=== PATIENT | female | born 1960 | race Caucasian/White ===

== ENCOUNTER 2019-05-28 10:41 | Emergency (ER) | payer OTHER, SELFPAY ==
[2019-05-28 10:55] VITALS: BP 120/76; PULSE 65; RESP 16; TEMP 36.4; O2SAT 96; BMI 22.7
--- NOTE | 2019-05-28 11:13 | DI.RAD.S_ITS ---
PROCEDURE: XR CHEST 1V INDICATIONS: chest pain TECHNIQUE: One view of the chest was acquired. COMPARISON: None. FINDINGS: Surgical changes and devices: None. Lungs and pleura: Lungs are clear. No pleural effusions or pneumothorax. Mediastinum: Mediastinal contours appear normal. Heart size is normal. Bones and chest wall: No suspicious bony lesions. Overlying soft tissues appear unremarkable. IMPRESSION: No acute pulmonary process. Dictated by: Nadeen De La Cruz M.D. on 05/28/2019 at 12:02 Approved by: Nadeen De La Cruz M.D. on 05/28/2019 at 12:02
[2019-05-28 11:30] LABS: Add Manual Diff / Slide Review NO; Basophils Absolute Auto 0 /uL (0-100); Basophils Percent Auto 0.3 % (0-2); Eosinophils Absolute Auto 100 /uL (0-450); Eosinophils Percent Auto 0.6 % (2-4); Hematocrit 42.9 % (36-46); Hemoglobin 15.3 g/dL (12.0-16.0); Lymphocytes Absolute Auto 900 /uL (1100-4500); Lymphocytes Percent Auto 9.9 % (25-40); Mean Corpuscular HGB Conc 35.7 % (30-36); Mean Corpuscular Hemoglobin 32.3 PG (26-34); Mean Corpuscular Volume 90.3 fL (80-100); Monocytes Absolute Auto 600 /uL (0-900); Monocytes Percent Auto 6.9 % (3-14); Neutrophils Absolute Auto 7400 /uL (1500-7000); Neutrophils Percent Auto 82.3 % (50-75); Platelet Count 207 X10^3/uL (150-400); Red Blood Cell Count 4.75 X10^6/uL (4.0-5.2); Red Cell Distribution Width 12.4 % (11.6-14.8)
[2019-05-28] MEDS: SODIUM CHLORIDE 0.9% 1,000 ML 1000 ML IV (11:36)
[2019-05-28 11:38] LABS: Prothrombin Time 11.3 SECONDS (10.1-12.7)
[2019-05-28 11:40] LABS: PTT Partial Thromboplastin Tim 28 SECONDS (26.4-36.2)
[2019-05-28 11:52] LABS: Alanine Aminotransferase 21 IU/L (<35); Albumin 5.1 g/dL (3.5-5.0); Albumin Globulin Ratio 1.6 (1.0-2.8); Alkaline Phosphatase 76 U/L (38-126); Aspartate Aminotransferase 44 IU/L (14-36); BUN Creatinine Ratio 18.6 (6-22); Bilirubin Total 2.4 mg/dL (0.2-1.3); Blood Urea Nitrogen 13 mg/dL (7-17); Calcium 9.6 mg/dL (8.4-10.2); Carbon Dioxide 28 mmol/L (22-32); Chloride 87 mmol/L (98-107); Creatine Kinase 99 U/L (30-135); Estimated Glomerular Filt Rate > 60.0 mL/min (>60); Globulin 3.2 g/dL (1.7-4.1); Glucose 109 mg/dL (80-110); Lipase 166 U/L (23-300); Sodium 128 mmol/L (137-145); Total Protein 8.3 g/dL (6.3-8.2)
--- NOTE | 2019-05-28 11:53 | ED.SYNCOPE ---
HPI - Syncope General Chief Complaint: Syncope Stated Complaint: low bp/ fainted 2x/ rt side body numb Time Seen by Provider: 05/28/19 11:19 Source: patient and family Mode of arrival: Ambulatory Limitations: language barrier History of Present Illness HPI narrative: Patient comes emergency department complaining of a syncopal episode that happened earlier today. Patient was walking after being up all night in taking her blood pressure medication this morning. Patient states she started to feel dizzy and ended up losing consciousness. She found herself on the floor the living room, which is carpeted. Patient has not been ill with anything else recently. 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 The patient denies any vomiting, but did experience some nausea. No chest pain or shortness of breath. No recent fluid losses. Patient has a history of a chin lift, and states that since then, she has noticed more problems with dizziness, especially if she is tipping her head back to look up. Patient denies any fevers or chills. She states she is otherwise healthy. Related Data Allergies Allergy/AdvReac Type Severity Reaction Status Date / Time analgyn Allergy Uncoded 05/28/19 10:55 Review of Systems Constitutional Constitutional: Denies chills, Denies fatigue, Denies fever(s), Denies frequent falls, Denies lethargy and Denies weakness Eyes Eyes: Denies change in vision, Denies eye discharge, Denies irritation and Denies loss of vision ENT Ears, Nose, Mouth, and Throat: Denies change in voice, Denies dizziness, Denies neck pain, Denies sore throat and Denies throat swelling Cardiovascular Cardiovascular: Denies chest pain, Reports syncope, Denies irregular heart rhythm, Denies lightheadedness, Denies palpitations, Denies dyspnea, Denies dyspnea on exertion and Denies orthopnea Respiratory Respiratory: Denies cough, Denies dyspnea, Denies dyspnea on exertion and Denies wheezing Gastrointestinal Gastrointestinal: Denies abdominal pain, Denies change in bowel habits, Denies diarrhea, Denies nausea and Denies vomiting Genitourinary Genitourinary: Denies hematuria, Denies flank pain, Denies urinary incontinence and Denies urinary urgency Musculoskeletal Musculoskeletal: Denies back pain, Denies muscle weakness, Denies neck pain, Denies numbness and Denies tingling Integumentary/Breasts Skin/Breast: Denies pruritus, Denies erythema, Denies rash and Denies wounds Neurologic Neurologic: Denies behavioral changes, Denies confusion, Denies dizziness, Reports syncope, Denies frequent falls, Denies loss of vision, Denies numbness, Denies tingling and Denies weakness Psychiatric Psychiatric: Denies anxiety, Denies behavioral changes, Denies confusion, Denies depression, Denies homicidal ideation and Denies suicidal ideation Endocrine Endocrine: Denies fatigue, Denies flushing and Denies palpitations Hematologic/Lymphatic Hematologic/Lymphatic: Denies easy bruising Allergic/Immunologic Allergic/Immunologic: Denies urticaria, Denies throat swelling and Denies wheezing Patient History Medical History HTN (hypertension) (Acute) Social History Smoking Status: Never smoker Exam Initial Vital Signs Initial Vital Signs: Vital Signs Temperature 97.6 F 05/28/19 10:55 Pulse Rate 65 05/28/19 10:55 Respiratory Rate 16 05/28/19 10:55 Blood Pressure 120/76 05/28/19 10:55 Pulse Oximetry 96 05/28/19 10:55 Const General: cooperative and well developed Nutritional Appearance: well nourished Orientation: alert, awake, oriented x3 and not confused [facility] Head: normocephalic and atraumatic Ears: external ears normal Nose: external nose normal and No nasal discharge Face and sinus: face symmetric and No dry mucous membranes Mouth: oral mucosae normal and moist mucous membranes Teeth and gingiva: dentition normal Throat: tonsils normal and uvula midline Eyes General: appearance normal, both eyes and all related structures Eyelids: eyelids normal Conjunctivae: conjunctivae normal Sclera: sclerae normal Pupils: PERRL EOM: EOM intact bilaterally Neck Neck: normal visual inspection, trachea midline, No lymphadenopathy, No midline deformity and No JVD Lymphatic: No lymphedema Chest Chest: normal inspection of the chest Resp Effort & Inspection: normal respiratory effort, able to speak in complete sentences, no respiratory distress and no use of accessory muscles Auscultation: clear to auscultation bilaterally, no rales, no rhonchi and no wheezes Cardio Rate: regular rate Rhythm: regular rhythm Heart Sounds: no click, no gallops, no murmurs and no rubs Pulses: normal peripheral pulses GI Inspection: non-distended Palpation: soft, no hepatosplenomegaly, No guarding, No pulsatile mass and No tender Auscultation: normal bowel sounds Back/Spine/Pelvis Back: No CVA tenderness Cervical Spine: cervical ROM normal and No pain with cervical ROM Thoracic/Lumbar Spine: thoracic and lumbar spine normal to inspection Skin General: no rashes or lesions noted, No jaundice and No petechiae Neuro General: alert, oriented x3, gait normal and no focal motor deficits Speech: speech normal Extrem General: full ROM, no clubbing, cyanosis or edema, no pedal edema and no calf tenderness Psych Appearance: well kempt Mental Status: mental status grossly normal Attitude: cooperative Thought Content: normal and suicidality Judgment: judgment good Course Course Course Narrative: Patient was fairly well-appearing in the emergency her vitals were normal. Her EKG was reassuring. The patient was worked up with labs and imaging, and given IV fluids, after which she was found to be feeling much better. We have discussed the need for her to drink plenty of fluids at home and to try to rest during the day if she has not slept well at night. We have discussed the usual indications for return and follow-up. Orders Ordered: Discontinued Medications Sodium Chloride (Normal Saline 0.9%) 1,000 mls @ 1,000 mls/hr IV BOLUS ONE Stop: 05/28/19 12:29 Last Infusion: 05/28/19 13:24 Dose: 0 mls/hr Documented by: Infusion: 05/28/19 12:42 Dose: 1,000 mls/hr Documented by: Infusion: 05/28/19 12:06 Dose: 0 mls/hr Documented by: Admin: 05/28/19 11:36 Dose: 1,000 mls/hr Documented by: SHEMAR Vital Signs Vital signs: Vital Signs - 8 hr 05/28/19 10:55 Temperature 97.6 F Pulse Rate 65 Respiratory Rate 16 Blood Pressure 120/76 Pulse Oximetry 96 MDM - Syncope Medical Records Attestation: I reviewed the patient's medical records. Lab Data Attestation: I reviewed the patient's lab results. Result diagrams: 05/28/19 11:25 05/28/19 11:25 Labs: Lab Results 05/28/19 05/28/19 05/28/19 Range/Units 11:25 11:25 11:25 WBC 9.0 (4.5-11.0) X10^3/uL RBC 4.75 (4.0-5.2) X10^6/uL Hgb 15.3 (12.0-16.0) g/dL Hct 42.9 (36-46) % MCV 90.3 (80-100) fL MCH 32.3 (26-34) PG MCHC 35.7 (30-36) % RDW 12.4 (11.6-14.8) % Plt Count 207 (150-400) X10^3/uL Neut % (Auto) 82.3 H (50-75) % Lymph % (Auto) 9.9 L (25-40) % [place] % (Auto) 6.9 (3-14) % Eos % (Auto) 0.6 L (2-4) % Baso % (Auto) 0.3 (0-2) % Neut # (Auto) 7400 H (1796-2602) /uL Lymph # (Auto) 900 L (2752-2568) /uL [place] # (Auto) 600 (0-900) /uL Eos # (Auto) 100 (0-450) /uL Baso # (Auto) 0 (0-100) /uL PT 11.3 (10.1-12.7) SECONDS INR 1.0 (0.9-1.3) APTT 28 (26.4-36.2) SECONDS Sodium 128 L (137-145) mmol/L Potassium 4.0 (3.4-5.1) mmol/L Chloride 87 L (98-107) mmol/L Carbon Dioxide 28 (22-32) mmol/L BUN 13 (7-17) mg/dL Creatinine 0.70 (0.52-1.04) mg/dL Estimated GFR > 60.0 (>60) mL/min BUN/Creatinine Ratio 18.6 (6-22) Glucose 109 (80-110) mg/dL Calcium 9.6 (8.4-10.2) mg/dL Total Bilirubin 2.4 H (0.2-1.3) mg/dL AST 44 H (14-36) IU/L ALT 21 (<35) IU/L Alkaline Phosphatase 76 (38-126) U/L Total Creatine Kinase 99 (30-135) U/L CK-MB (CK-2) TNP CK-MB (CK-2) Rel Index TNP Troponin I < 0.012 (0.01-0.034) ng/mL Total Protein 8.3 H (6.3-8.2) g/dL Albumin 5.1 H (3.5-5.0) g/dL Globulin 3.2 (1.7-4.1) g/dL Albumin/Globulin Ratio 1.6 (1.0-2.8) Lipase 166 (23-300) U/L Imaging Data Chest x-ray: Radiologist's impression: PROCEDURE: XR CHEST 1V INDICATIONS: chest pain TECHNIQUE: One view of the chest was acquired. COMPARISON: None. FINDINGS: Surgical changes and devices: None. Lungs and pleura: Lungs are clear. No pleural effusions or pneumothorax. Mediastinum: Mediastinal contours appear normal. Heart size is normal. Bones and chest wall: No suspicious bony lesions. Overlying soft tissues appear unremarkable. IMPRESSION: No acute pulmonary process. Dictated by: Nadeen De La Cruz M.D. on 05/28/2019 at 12:02 Approved by: Nadeen De La Cruz M.D. on 05/28/2019 at 12:02 CT scan - head: Radiologist's impression: PROCEDURE: CT HEAD/BRAIN WO CON INDICATIONS: syncope TECHNIQUE: Noncontrast 4.5 mm thick angled axial sections acquired from the foramen magnum to the vertex, with coronal and sagittal reformats. For radiation dose reduction, the following was used: automated exposure control, adjustment of mA and/or kV according to patient size. COMPARISON: [facility], , XR CHEST 1V, 05/28/2019, 11:34. FINDINGS: Image quality: Excellent. CSF spaces: Basal cisterns are patent. No extra-axial fluid collections. The ventricles are symmetric in size and shape. Brain: No intracranial bleeds or masses. There is cerebral volume loss for age, with resultant ventricular and sulcal prominence. There are periventricular and deep white matter chronic small vessel ischemic changes. There is intracranial internal carotid artery atherosclerosis. Symmetric basal ganglia calcification is seen, which is not regarded to be pathologic. Skull and face: Calvarium and visualized facial bones appear intact, without suspicious lesions. Sinuses: Visualized sinuses and mastoids are clear. IMPRESSION: Unremarkable intracranial study for age, without an imaging explanation for the patient's presenting history of syncope. Dictated by: Rajeev Goyal M.D. on 05/28/2019 at 11:26 Approved by: Rajeev Goyal M.D. on 05/28/2019 at 11:27 ECG Data Attestation: I personally reviewed and interpreted this ECG as follows: (See below) Interpretation: Twelve lead EKG performed May 28, 2018 at 10:57 a.m. as follows: Regular ventricular rhythm with a rate of 67 beats per min IL interval is 164 millisecond QRS duration 79 millisecond QTC interval 424 millisecond Occasional ectopy No significant ST T wave changes Interpretation: Normal sinus rhythm with occasional PVCs; nonspecific ST T wave changes; no signs of acute ischemia; borderline EKG as interpreted by ED MD. Discharge Plan Departure Patient Disposition: Home Clinical Impression: Syncope Qualifiers: Syncope type: unspecified Qualified Code(s): R55 - Syncope and collapse Discharge Date/Time: 05/28/19 13:59 Instructions: DI for Syncope in Adults (Fainting) Activity Restrictions/Additional Instructions: Your labs, EKG, and CT scan look good. There is no evidence of a dangerous or emergent condition which has caused your fainting today. Please be sure that you drink plenty of fluids, and rest for a bit after taking your blood pressure medicine, particularly if you have been up a lot in the night. This will help prevent future fainting episodes. If he feels faint again and have chest pain, shortness of breath, palpitations, or any other concerning symptoms along with the feeling of being faint, the please return to the emergency department immediately. Otherwise, please follow-up with your primary care physician. You may discuss with your doctor whether an ultrasound of your carotid arteries/neck vasculature is warranted, due to your dizziness when you tip your head back. Referrals: [facility] [Provider Group]
[2019-05-28 11:54] LABS: HEMOLYSIS 55 (0-50)
[2019-05-28 11:59] VITALS: BP 108/77; PULSE 66; O2SAT 96
[2019-05-28 12:03] LABS: Troponin I < 0.012 ng/mL (0.01-0.034)
[2019-05-28 13:25] VITALS: BP 136/77; PULSE 66; RESP 14; O2SAT 97
[2019-05-28 13:58] VITALS: BP 136/77; PULSE 68; RESP 16; O2SAT 100
== END 2019-05-28 13:59 | disposition home or self-care (01) ==
PROVIDERS: Emergency Provider Emergency Medicine
DX: R55 Syncope and collapse (principal); R07.9 Chest pain, unspecified; I95.9 Hypotension, unspecified
CPT/HCPCS: 36415; 70450; 71045; 80053; 82550; 83690; 84484; 85025; 85610; 85730; 93005; 96360; 99284; 99285

== ENCOUNTER 2019-10-12 22:24 | Emergency (ER) | payer OTHER, SELFPAY ==
[2019-10-12 22:37] VITALS: BP 180/102; PULSE 69; RESP 15; TEMP 36.8; O2SAT 100; BMI 22.3
--- NOTE | 2019-10-12 22:37 | ED_ITS ---
HPI - General Adult General Chief complaint: Hypertension Stated complaint: states very high blood pressure Time Seen by Provider: 10/12/19 22:27 Source: patient and family (Daughter) Mode of arrival: Ambulatory Limitations: language barrier History of Present Illness HPI narrative: 59-year-old female. Speaks some broken Romanian. Much of translation provided by daughter. Offered translation line however they de clined. Patient is here for evaluation of high blood pressure and nausea and headache. Patient has a history of high blood pressure. Does take captopril which she buys [id number] in [place]. She states she only take this medication when her systolic blood pressure gets greater than 140. She was recently given a prescription for losartan. She only started taking this approximately 1 week ago. She states that over the past couple days she has noticed that in the afternoons she is not feeling well to include headaches and some nausea. No vomiting. She also states she has some tingling in her hands that is bilateral. This evening she took her blood pressure and was elevated with a systolic in the 170s. She states she did take her medications this morning. She states that normally in the afternoon her blood pressure is in the 120s to 140 range. She has never had a headache before with elevated blood pressure. Related Data Home Medications Medication Instructions Recorded Confirmed captopril 25 mg PO PRN PRN 10/12/19 10/12/19 losartan 12.5 mg PO DAILY 10/12/19 10/12/19 Allergies Allergy/AdvReac Type Severity Reaction Status Date / Time analgyn Allergy Uncoded 05/28/19 10:55 Review of Systems Constitutional Constitutional: Denies fever(s), Reports headache(s) and Denies weakness Eyes Eyes: Denies blurry vision and Denies change in vision ENT Ears, Nose, Mouth, and Throat: Denies vertigo, Denies dizziness, Reports headache(s), Denies disequilibrium and Denies sore throat Cardiovascular Cardiovascular: Denies chest pain and Denies dyspnea Respiratory Respiratory: Denies dyspnea Gastrointestinal Gastrointestinal: Denies abdominal pain, Reports nausea and Denies vomiting Musculoskeletal Musculoskeletal: Denies arthralgias and Reports tingling Integumentary/Breasts Skin/Breast: Denies lesions and Denies rash Neurologic Neurologic: Denies behavioral changes, Denies vertigo, Denies dizziness, Reports headache(s), Denies restless legs, Reports tingling, Denies disequilibrium and Denies weakness Psychiatric Psychiatric: Denies behavioral changes Hematologic/Lymphatic Hematologic/Lymphatic: Denies easy bleeding and Denies easy bruising Patient History Medical History HTN (hypertension) (Acute) Social History Smoking Status: Never smoker Smoking Status: Never smoker Exam Initial Vital Signs Initial Vital Signs: Vital Signs Temperature 98.2 F 10/12/19 22:37 Pulse Rate 69 10/12/19 22:37 Respiratory Rate 15 10/12/19 22:37 Blood Pressure 180/102 H 10/12/19 22:37 Pulse Oximetry 100 10/12/19 22:37 Const General: cooperative, comfortable, well developed and well groomed Limitations: mental status not altered HENMT Head: normal to inspection and normocephalic Resp Effort & Inspection: normal respiratory effort Auscultation: clear to auscultation bilaterally Cardio Rate: regular rate Rhythm: regular rhythm Skin Lesions: no lesions Rashes: no rashes Neuro General: alert, awake and oriented x3 Cranial Nerves: CN's II-XI intact bilaterally Cognition: normal cognition Speech: speech normal Sensory Exam: no sensory deficits noted Extrem General: normal to inspection and capillary refill normal Psych Appearance: grossly normal and well kempt Course Orders Ordered: ED Orders 10/12/19 22:29 EKG-12 Lead Stat 10/12/19 22:48 CT head/brain wo con Stat Discontinued Medications Acetaminophen (Tylenol) 975 mg PO NOW ONE Stop: 10/12/19 22:49 Last Admin: 10/12/19 23:15 Dose: 975 mg Documented by: ELPIDIO Ondansetron HCl (Zofran Odt) 4 mg SL NOW ONE Stop: 10/12/19 22:49 Last Admin: 10/12/19 23:15 Dose: 4 mg Documented by: ELPIDIO Vital Signs Vital signs: Vital Signs - 8 hr 10/12/19 22:37 10/12/19 23:41 Temperature 98.2 F Pulse Rate 69 63 Respiratory Rate 15 14 Blood Pressure 180/102 H Blood Pressure [Left Arm] 157/98 H Pulse Oximetry 100 97 Medical Decision Making Imaging Data CT scan - head: Radiologist's Impression: No acute changes ECG Data Attestation: I personally reviewed and interpreted this ECG as follows: Prior ECG tracings: not available for review Interpretation: Sinus rhythm Ventricular rate is 62 Normal axis Normal QRS Normal QTC No ST T wave changes MDM Narrative Medical decision making narrative: Patient has a normal neurologic exam. Blood pressure did decrease to a systolic in the 140s with rest and symptom treatment. Head CT was unremarkable. EKG is unremarkable. Had a long discussion with her and her daughter bedside regarding blood pressure. We did discuss the importance of taking her blood pressure at home and recording these numbers so that she could talk with her primary doctor about potentially changing any medi cations. I do not feel like we should change any of her medications this evening given her presenting symptoms. Low suspicion for end-organ damage to include TIA/CVA or acute intracranial hemorrhage given her clinical presentation. Patient was given return precautions and follow-up instructions. She expressed understanding and agreement. Discharge Plan Departure Patient Disposition: Home Clinical Impression: HTN (hypertension) Qualifiers: Hypertension type: unspecified Qualified Code(s): I10 - Essential (primary) hypertension Instructions: DI for High Blood Pressure Activity Restrictions/Additional Instructions: Recommend that you continue to take your blood pressure medication like we discussed. It is important that you record your blood pressure is so that you can take them into your primary doctor to discuss any changes to your medications. Contact your primary provider for follow-up. Prescriptions: No Action captopril 25 mg Tablet 25 mg PO PRN PRN (Reason: Blood Pressure) RF: 0 losartan 25 mg Tablet 12.5 mg PO DAILY RF: 0
--- NOTE | 2019-10-12 22:48 | DI.CT.S_ITS ---
PROCEDURE: CT HEAD/BRAIN WO CON INDICATIONS: elevated BP with hand tingling TECHNIQUE: Noncontrast 4.5 mm thick angled axial sections acquired from the foramen magnum to the vertex, with coronal and sagittal reformats. For radiation dose reduction, the following was used: automated exposure control, adjustment of mA and/or kV according to patient size. COMPARISON: [facility], CT, CT HEAD/BRAIN WO CON, 05/28/2019, 12:03. FINDINGS: Image quality: Excellent. CSF spaces: Basal cisterns are patent. No extra-axial fluid collections. Ventricles are normal in size and shape. Brain: No midline shift. No intracranial masses or hemorrhage. Bilateral basal ganglia calcifications. Holley-white matter interface is normal. Skull and face: Calvarium and visualized facial bones are intact, without suspicious lesions. Sinuses: Visualized sinuses and mastoids are clear. IMPRESSION: No acute intracranial abnormalities. No significant discrepancy with the filler and trimmer radiology preliminary report. Dictated by: Ignacia Tineo M.D. on 10/13/2019 at 8:03 Approved by: Ignacia Tineo M.D. on 10/13/2019 at 8:04
[2019-10-12] MEDS: ACETAMINOPHEN 325 MG TABLET 975 MG PO (23:15)
[2019-10-12] MEDS: ONDANSETRON 4 MG ODT SL (23:15)
[2019-10-12 23:41] VITALS: BP 157/98; PULSE 63; RESP 14; O2SAT 97
== END 2019-10-13 00:20 | disposition home or self-care (01) ==
PROVIDERS: Emergency Provider Emergency Medicine
DX: I10 Essential (primary) hypertension (principal); R51 Headache; R11.0 Nausea
CPT/HCPCS: 70450; 93005; 99284

== ENCOUNTER → 2020-10-04 08:06 | Outpatient (CLI) | payer OTHER, SELFPAY ==
--- NOTE | 2020-10-04 | DI.US.S_ITS ---
PROCEDURE: US ABDOMEN COMPLETE INDICATIONS: LEFT UPPER QUADRANT PAIN TECHNIQUE: Real-time scanning was performed of the abdominal and retroperitoneal organs, with image documentation. COMPARISON: None. FINDINGS: Liver: Liver is normal in size and homogeneous in echotexture. Gallbladder: Nondilated. No stones or sludge. Normal gallbladder wall thickness. No pericholecystic fluid. Negative sonographic Valdovinos's sign. Biliary ducts: Intrahepatic bile ducts are non-dilated. Extrahepatic bile duct caliber measures 7 mm. Normal is 6-7 mm or less in diameter, or 10 mm or less post-cholecystectomy. Pancreas: Visualized portions of the pancreas are sonographically normal. Spleen: Spleen is normal in size and homogeneous in echotexture. Kidneys: Kidneys are normal in size and echotexture. Right kidney measures 10.6 cm long; left kidney measures 10 cm long. No hydronephrosis or nephrolithiasis. No solid masses. Right kidney simple cyst measuring at 3.7 cm. Aorta: Visualized aorta is normal in caliber at less than 3 cm. Iliacs: Proximal common iliac arteries are normal in caliber at less than 2.5 cm. IVC: Intrahepatic inferior vena cava is patent. Miscellaneous: No free abdominal fluid. IMPRESSION: 1. No acute cholecystitis. No gallstones. 2. CBD is at the upper limits of normal. 3. No hydronephrosis. If clinically indicated consider CT abdomen and pelvis with IV contrast for further evaluation. Dictated by: Wil Matthew M.D. on 10/04/2020 at 9:25 Approved by: Wil Matthew M.D. on 10/04/2020 at 9:30
== END ==
PROVIDERS: PCP Naturopath; Referring Provider Naturopath; Visit Provider Naturopath
DX: R10.12 Left upper quadrant pain (principal)
CPT/HCPCS: 76700

== ENCOUNTER 2022-09-04 | Emergency (ER) | payer OTHER, SELFPAY ==
[2022-09-04 00:32] VITALS: BP 175/117; PULSE 66; RESP 18; TEMP 36.6; O2SAT 98
--- NOTE | 2022-09-04 02:33 | DI.RAD.S_ITS ---
PROCEDURE: XR FINGER LT MIN 2V INDICATIONS: deep laceration, possible foreign body TECHNIQUE: AP hand, 2 views of the left 4th finger(s) acquired. COMPARISON: None. FINDINGS: Bones: No acute fractures or dislocations. Polyarticular degenerative changes of the interphalangeal joints of the imaged left hand. Findings are most pronounced in the distal interphalangeal joints as well as the interphalangeal joint of the thumb. No suspicious bony lesions. Soft tissues: No suspicious soft tissue calcifications. No radiopaque soft tissue foreign bodies . IMPRESSION: Left 4th finger without acute fracture or dislocation. No radiopaque soft tissue foreign body seen. Background polyarticular degenerative changes of the left hand. No significant discrepancy with the night shift manager radiology preliminary report. Dictated by: Rubén Walker M.D. on 09/04/2022 at 7:14 Approved by: Rubén Walker M.D. on 09/04/2022 at 7:16
[2022-09-04] MEDS: TET,DIPH,PERTUSS(ACELL),VAC/PF 0.5 ML SYRINGE IM (02:41)
[2022-09-04] MEDS: LIDOCAINE 2% INJ MDV 20ML SUBCUT (02:43)
--- NOTE | 2022-09-04 03:07 | ED_ITS ---
HPI - Wound/Laceration General Chief Complaint: Wound/Laceration Stated Complaint: check left hand finger injury Time Seen by Provider: 09/04/22 01:09 Source: patient Mode of arrival: Ambulatory History of Present Illness HPI narrative: 62-year-old female nonsmoker with a history of hypertension presents with her in the chief complaint of an accidental laceration to the ring finger of her left hand. She and he or walking on a [place] and [facility] and she was holding a ceramic mug when she tripped and fell causing the mug to shatter which resulted in a laceration of the volar surface of her left index finger. She states that it was washed and dressed by a mica washer gluer up at the [employer], she then drove about 2 hours here. She states her tetanus will need to be updated. She states it bled a fair amount. She denies any numbness, tingling weakness. Related Data Home Medications Medication Instructions Recorded Confirmed captopril 25 mg tablet 25 mg PO PRN PRN Blood Pressure 10/12/19 09/17/21 losartan 25 mg tablet 12.5 mg PO DAILY 10/12/19 09/17/21 Previous Rx's Medication Instructions Recorded ondansetron 4 mg disintegrating 4 mg PO Q6H PRN nausea and 10/13/19 tablet vomiting #14 tabs cephalexin 500 mg capsule 500 mg PO Q6H 7 days #28 caps 09/04/22 hydrocodone 5 mg-acetaminophen 325 1 tab PO Q4-6H PRN pain #10 tabs 09/04/22 mg tablet Allergies Allergy/AdvReac Type Severity Reaction Status Date / Time analgyn Allergy Uncoded 05/28/19 10:55 Review of Systems Review of Systems Narrative: GENERAL: Denies chills, fatigue, malaise, fever, sweats. HEENT: Denies sinus pain, ear pain, sore throat, difficulty swallowing, dizziness. RESPIRATORY: Denies dyspnea, cough, wheezing, hemoptysis, sputum. CARDIOVASCULAR: Denies chest pain, palpitations, orthopnea, edema, GASTROINTESTINAL: Denies nausea, vomiting, abdominal pain, diarrhea, constipation, melena. : Denies dysuria, frequency, incontinence, hematuria, urinary retention. MUSCULOSKELETAL: See HPI SKIN: Denies rash, skin lesions, or other NEUROLOGIC: Denies weakness, headache, numbness, change in speech, confusion, seizures, incoordination. PSYCHIATRIC: No concerning psychosocial issues. 12 point review of systems is negative except for those stated above Patient History Medical History HTN (hypertension) Social History Smoking Status: Never smoker Smoking Status: Never smoker Substance Use Type: does not use Exam Narrative Exam Narrative: GENERAL: [62] year old patient appears stated age. Well-developed patient, in mild distress. HEAD: Atraumatic. Normocephalic. EYES: Pupils equal round and reactive. Extraocular motions intact. No scleral icterus. No injection or drainage. ENT: Nose without bleeding, purulent drainage. Throat without erythema, tonsillar hypertrophy or exudate. Airway patent. NECK: Trachea midline. Non tender CARDIOVASCULAR: Regular rate and rhythm without murmurs, gallops, or rubs. RESPIRATORY: Clear to auscultation. Breath sounds equal bilaterally. No wheezes, rales, or rhonchi. GASTROINTESTINAL: Abdomen soft, non-tender, nondistended. EXTREMITIES: 1.5 cm irregular flap like laceration on the flexor surface of her left ring finger. It is deep and there is pulsatile bleeding noted, no foreign body is seen. Blood pressure cuff used on left forearm to allow visualization in a bloodless field and no obvious tendon involvement is noted. BACK: Nontender without deformity or crepitance. No flank tenderness. NEURO: AOx3. SKIN: No rash or erythema of visible areas Initial Vital Signs Initial Vital Signs: Vital Signs Temperature 97.9 F 09/04/22 00:32 Pulse Rate 66 09/04/22 00:32 Respiratory Rate 18 09/04/22 00:32 Blood Pressure 175/117 H 09/04/22 00:32 Pulse Oximetry 98 09/04/22 00:32 Oxygen Delivery Method Room Air 09/04/22 00:32 Procedures Laceration Repair Laceration 1: Site: hand Side (If applicable): left Size (cm): 1.5 Description: flap and irregular Depth: simple, single layer Pre-repair: wound explored, irrigated extensively, deep structures intact and cleansed with chlorhexadine Skin layer closed with: nylon Skin layer suture size: 4-0 Number of sutures: 5 Technique: simple, interrupted Subcutaneous layer closed with: vicryl Subcutaneous layer suture size: 5-0 Number of sutures: 1 Technique: simple, interrupted Nerve Block Nerve Block 1: Time out performed: Yes Local Anesthetic: lidocaine 2% Amount of anesthesia used (mL): 4 Side: left Nerve Blocks: digital Procedure Successful: Yes Patient Tolerated Procedure: Well Complications: none Orthopedic Splinting/Casting Injury #1: Side: left Upper Extremity Injury Location: finger Upper Extremity Immobilizer: finger (other) Post splinting neuro exam: intact Post splinting vascular exam: intact Placed by: Nursing Course Orders Ordered: Discontinued Medications Hydrocodone Bitart/Acetaminophen (Hydrocodone/Acet 5/325 Prepack) 1 bottle MISC SEEINSTR ONE Stop: 09/04/22 02:34 Last Admin: 09/04/22 03:12 Dose: 1 bottle Documented By: MADELAINE Bacitracin (Bacitracin Oint 0.9 Gm Pckt) 1 applic TOP NOW ONE Stop: 09/04/22 02:46 Last Admin: 09/04/22 03:14 Dose: 1 applic Documented By: MADELAINE Diphtheria/Tetanus/Acell Pertussis (Tet,Diph,Pertuss(Acell),Vac/Pf 0.5 Ml Syringe) 0.5 ml IM .ONCE ONE Stop: 09/04/22 01:11 Last Admin: 09/04/22 02:41 Dose: 0.5 ml Documented By: MADELAINE Lidocaine HCl (Lidocaine 2% Inj Mdv 20ml) 1 ml SUBCUT NOW ONE Stop: 09/04/22 01:11 Last Admin: 09/04/22 02:43 Dose: 1 ml Documented By: MADELAINE Vital Signs Vital signs: Vital Signs - 8 hr 09/04/22 00:32 Temperature 97.9 F Pulse Rate 66 Respiratory Rate 18 Blood Pressure 175/117 H Pulse Oximetry 98 Oxygen Delivery Method Room Air MDM - Wound/Laceration MDM Narrative Medical decision making narrative: [62] year old patient presents with laceration to left index finger Multiple etiologies for patient's symptoms considered including, but not limited to: [Arterial involvement, possible foreign body, tendon involvement, versus other] Prior Charts reviewed in our EMR Primary Historian: patient Imaging reviewed: No fracture or foreign body Patient with deep laceration that allows fingers remained neurovascularly intact. There is a small arterial involvement at requires 1 deep suture for hemostasis. No obvious tendon involvement, wound repaired, tetanus updated, splinted, antibiotics started and importance of close follow-up related to patient and . She did have a ring that was removed Patient's symptoms improved over duration of stay with above-stated therapies. Findings and discharge diagnosis discussed with patient/family followed by verbalization of understanding Return precautions discussed with patient/family whom verbalize understanding of diagnosis and plan Discharge Plan Departure Patient Disposition: Home Clinical Impression: Laceration of left ring finger Instructions: DI for Laceration Repair Activity Restrictions/Additional Instructions: *You have been diagnosed with [deep laceration to left ring finger with arterial involvement. As we discussed, when visualized in a bloodless field there was no obvious tendon involvement] *What to do: *Please continue to take your regular medications as directed. [x ] New medication prescriptions sent to your pharmacy: [ [facility] in [place]] [ ] New medication written as a paper prescription [ ] No new medications given Please keep the wound clean and dry to the best of your ability. Please monitor for signs of infection such as redness to the skin or increasing pain. Have the sutures/iliana removed by your doctor or Dr. Quijano (Orthopedics) in about 10 days. . Prescriptions: New hydrocodone-acetaminophen 5-325 mg tablet 1 tab PO Q4-6H PRN (Reason: pain) Qty: 10 0RF cephalexin 500 mg capsule 500 mg PO Q6H 7 Days Qty: 28 0RF No Action captopril 25 mg Tablet 25 mg PO PRN PRN (Reason: Blood Pressure) Rx Instructions: pt buys OTC, takes as needed. losartan 25 mg Tablet 12.5 mg PO DAILY ondansetron 4 mg tablet,disintegrating 4 mg PO Q6H PRN (Reason: nausea and vomiting) Qty: 14 0RF Referrals: Miscellaneous,Doctor, [Primary Care Provider] - Pernell Quijano MD [Physician] - Stand Alone Forms: Patient Portal/API
[2022-09-04] MEDS: HYDROCODONE/ACET 5/325 PREPACK 1 BOTTLE MISC (03:12)
[2022-09-04] MEDS: BACITRACIN OINT 0.9 GM PCKT 1 APPLIC TOP (03:14)
[2022-09-04 03:28] VITALS: BP 172/86; PULSE 72; RESP 16; TEMP 36.6; O2SAT 100
== END 2022-09-04 03:29 | disposition home or self-care (01) ==
PROVIDERS: Emergency Provider Emergency Medicine
DX: S61.215A Laceration without foreign body of left ring finger without damage to nail, initial encounter (principal); W26.8XXA Contact with other sharp object(s), not elsewhere classified, initial encounter; Z23 Encounter for immunization
CPT/HCPCS: 12001; 29130; 64450; 73140; 90471; 99283; 90715

== ENCOUNTER 2022-09-13 14:40 | Emergency (ER) | payer OTHER, SELFPAY ==
[2022-09-13 14:46] VITALS: BP 120/83; PULSE 86; RESP 16; TEMP 36.7; O2SAT 98; BMI 24.7
--- NOTE | 2022-09-13 15:10 | PC.NURSE ---
Melonie JAIME took out patients stitches. see providers note for further evaluation.
--- NOTE | 2022-09-13 15:11 | ED_ITS ---
HPI - Recheck/Abnormal Lab/Rx <ADDISON Elizalde - Last Filed: 09/13/22 15:15> General Chief Complaint: Recheck/Abnormal Lab/Rx Stated Complaint: Stiches removal Time Seen by Provider: 09/13/22 14:55 Source: patient Mode of arrival: Ambulatory History of Present Illness HPI narrative: This is a 62-year-old female presents the emergency department for suture removal to her left 4th finger which she had sutures placed in 9 days ago. Denies any worsening, states that her symptoms have improved, denies any discharge, weakness of the finger, or signs of infection. Related Data Home Medications Medication Instructions Recorded Confirmed captopril 25 mg tablet 25 mg PO PRN PRN Blood Pressure 10/12/19 09/17/21 losartan 25 mg tablet 12.5 mg PO DAILY 10/12/19 09/17/21 Previous Rx's Medication Instructions Recorded ondansetron 4 mg disintegrating 4 mg PO Q6H PRN nausea and 10/13/19 tablet vomiting #14 tabs hydrocodone 5 mg-acetaminophen 325 1 tab PO Q4-6H PRN pain #10 tabs 09/04/22 mg tablet Allergies Allergy/AdvReac Type Severity Reaction Status Date / Time analgyn Allergy Uncoded 05/28/19 10:55 Review of Systems <ADDISON Elizalde - Last Filed: 09/13/22 15:15> Review of Systems ROS Unobtainable: All systems reviewed & are unremarkable except as noted in HPI and below Patient History <ADDISON Elizalde - Last Filed: 09/13/22 15:15> Medical History HTN (hypertension) Social History Smoking Status: Never smoker Smoking Status: Never smoker Substance Use Type: does not use Exam <ADDISON Elizalde - Last Filed: 09/13/22 15:15> Narrative Exam Narrative: Reviewed vitals signs and nursing notes. MSK: moves all extremities, neurovascularly intact, no weakness, left 4th finger has 6 sutures which are intact, without evidence of infection, erythema, streaking, or discharge. They removed, wound edges were reinforced with 3 quarter-inch Steri-Strips. Patient's finger was splinted with a Band-Aid extension. Neurovascularly intact Skin: brisk capillary refill, without rash Initial Vital Signs Initial Vital Signs: Vital Signs Temperature 98.1 F 09/13/22 14:46 Pulse Rate 86 09/13/22 14:46 Respiratory Rate 16 09/13/22 14:46 Blood Pressure 120/83 09/13/22 14:46 Pulse Oximetry 98 09/13/22 14:46 Oxygen Delivery Method Room Air 09/13/22 14:46 <Trevor Strickland DO - Last Filed: 09/13/22 15:51> Initial Vital Signs Initial Vital Signs: Vital Signs Temperature 98.1 F 09/13/22 14:46 Pulse Rate 86 09/13/22 14:46 Respiratory Rate 16 09/13/22 14:46 Blood Pressure 120/83 09/13/22 14:46 Pulse Oximetry 98 09/13/22 14:46 Oxygen Delivery Method Room Air 09/13/22 14:46 Course <ADDISON Elizalde - Last Filed: 09/13/22 15:15> Vital Signs Vital signs: Vital Signs - 8 hr 09/13/22 14:46 Temperature 98.1 F Pulse Rate 86 Respiratory Rate 16 Blood Pressure 120/83 Pulse Oximetry 98 Oxygen Delivery Method Room Air <Trevor Strickland DO - Last Filed: 09/13/22 15:51> Vital Signs Vital signs: Vital Signs - 8 hr 09/13/22 14:46 Temperature 98.1 F Pulse Rate 86 Respiratory Rate 16 Blood Pressure 120/83 Pulse Oximetry 98 Oxygen Delivery Method Room Air MDM - Recheck/Abnormal Lab/Rx <ADDISON Elizalde - Last Filed: 09/13/22 15:15> [facility] Narrative Medical decision making narrative: Chief Complaint: Independent historian: Patient Differential diagnoses include but are not limited to: Wound infection, suture removal, tendon injury, abscess I have independently reviewed the patient's vital signs and nursing notes as well as prior records if available. Course of care: 6 Sutures removed from 4th finger on left hand without evidence of infection, wound was cleaned with normal saline,, applied 3 quarter-inch Ster i-Strips to reinforce skin edges and splint finger in extension with a Band-Aid. Patient tolerated well, understands to return for any worsening. Social considerations that may affect disposition: none Questions are addressed and there is agreement with the plan and for follow-up. Patient is appropriate for outpatient management. MIPS: This encounter doesn't have any diagnosis' associated with MIPS criteria. Discharge Plan Departure Patient Disposition: Home Clinical Impression: Encounter for removal of sutures Activity Restrictions/Additional Instructions: *You have been diagnosed with suture removal to your finger laceration. This appears to be healing quite well. Please keep it covered with a Band-Aid and change this morning and night, you may wash with a gentle cleanser, okay to shower, then allowed to dry fully before putting on another Band-Aid. If the strips fall off, okay to replace if the skin needs some support there. Thin cover with a Band-Aid. Use the Band-Aid like a splint to avoid bending at the knuckle like a showed you. Please use Tylenol or ibuprofen as needed, the swelling and numbness should go down after some more time. Nice to see you again. *What to do: *Please continue to take your regular medications as directed. [ ] New medication prescriptions sent to your pharmacy: [ ] [ ] New medication written as a paper prescription [x ] No new medications given *Please follow up with your primary care provider in 2-3 days, call for an appointment. Let them know you were seen in the Emergency Department and that we asked that you be seen for follow-up. We will electronically transmit a record of today's note if your PCP is in our system *If you do not have a primary care provider please contact [phone] to establish care with one of the [facility] primary care providers. *Return to Emergency Department if you should have any new, worsening, or concerning symptoms, such as [fever greater than 101F, chills, worsening pain, persistent vomiting or other bothersome symptoms]. Prescriptions: No Action captopril 25 mg Tablet 25 mg PO PRN PRN (Reason: Blood Pressure) Rx Instructions: pt buys OTC, takes as needed. losartan 25 mg Tablet 12.5 mg PO DAILY ondansetron 4 mg tablet,disintegrating 4 mg PO Q6H PRN (Reason: nausea and vomiting) Qty: 14 0RF hydrocodone-acetaminophen 5-325 mg tablet 1 tab PO Q4-6H PRN (Reason: pain) Qty: 10 0RF Referrals: Miscellaneous,Doctor, [Primary Care Provider] - Stand Alone Forms: Patient Portal/API <Trevor Strickland, DO - Last Filed: 09/13/22 15:51> Cosign ED Attending Cosignature Attestation: Dr Strickland Co-Sign Statement: I was available for consultation during this patient's emergency department visit. This chart is signed by myself for administrative purposes only. I did not have direct contact with this patient during this visit. They were seen independently by the APC.
--- NOTE | 2022-09-13 15:16 | PC.NURSE ---
Patient evaluated, treated and discharged by provider prior to nursing assessment.
== END 2022-09-13 15:17 | disposition home or self-care (01) ==
PROVIDERS: Emergency Provider Nurse Practitioner Critical Care Medicine
CPT/HCPCS: 99281